=== PATIENT | female | born 1950 | race Caucasian/White ===

== ENCOUNTER 2018-01-05 23:09 | Emergency (ER) | payer BC, MEDICARE ==
[2018-01-05] MEDS ORDERED: Acetaminophen TAB* 325 MG PO ONE (23:52)
[2018-01-05] MEDS ORDERED: Lidocaine 2% 10 ML* VIAL INJ ONE (23:54)
[2018-01-05] MEDS ORDERED: Sulfamethox/Trimethoprim DS 800/160* TAB PO ONE (23:55)
[2018-01-05] MEDS ORDERED: Cephalexin CAP* 500 MG PO ONE (23:55)
[2018-01-06 00:12] LABS: Hematocrit 38 % (35-47); Hemoglobin 12.9 g/dl (12.0-16.0); Mean Corpuscular HGB Conc 34 g/dl (31-36); Mean Corpuscular Hemoglobin 31 pg (27-31); Mean Corpuscular Volume 90 fL (80-97); Red Blood Count 4.23 10^6/ul (4.0-5.4); Red Cell Distribution Width 13 % (10.5-15); White Blood Count 6.9 10^3/ul (3.5-10.8)
[2018-01-06 00:13] LABS: ABS Basophils 0.1 10^3/ul (0-0.2); ABS Eosinophils 0 10^3/ul (0-0.6); ABS Lymphocytes 0.6 10^3/ul (1.0-4.8); ABS Monocytes 0.4 10^3/ul (0-0.8); ABS Neutrophils 5.9 10^3/ul (1.5-7.7); ABS Nucleated RBC 0 10^3/ul; Eosinophil % 0.1 % (0-6); Lymphocyte % 8.8 % (25-47); Mean Platelet Volume 10.5 um3 (7.4-10.4); Nucleated Red Blood Cells % 0; Platelet Count 144 10^3/ul (150-450)
[2018-01-06] MEDS ORDERED: Lidocaine 2% PF * 5 ML VIAL ONE (00:20)
[2018-01-06 00:29] LABS: EGFR Non-African American 60.3 (>60)
[2018-01-06 00:57] VITALS: BP 137/77
--- NOTE | 2018-01-16 01:16 | ED ---
Red Mckenna Elizabeth, scribed for Antony Schafer MD on 01/05/18 at 2358 . HPI Febrile Illness - HPI Summary HPI Summary: This patient is a 67 year old F presenting to [facility] upon referral from Dr. Landry with a chief complaint of fever since 2 days ago. The patient rates the pain 5/10 in severity. Symptoms aggravated by nothing. Symptoms alleviated by nothing. Patient reports body aches in her back and chest. The patient also notes a growing abscess to her left wrist with some drainage. The patient reports that she was bitten by a dog on her leg a few weeks ago. The patient has been taking doxycycline for concerns of lyme disease Patient denies N/V/D, abd pain, sore throat, and rhinorrhea. - History of Current Complaint Chief Complaint: EDGeneral Time Seen by Provider: 01/05/18 23:46 Hx Obtained From: Patient Onset/Duration: Started Days Ago - 2 days ago, Still Present Timing: Constant Initial Severity: Mild Current Severity: Mild Pain Intensity: 5 Pain Scale Used: 0-10 Numeric Aggravating Factors: Nothing Alleviating Factors: Nothing Associated Signs and Symptoms: Swelling - abscess on left wrist, Other: - body aches - Allergy/Home Medications Allergies/Adverse Reactions: Allergies Allergy/AdvReac Type Severity Reaction Status Date / Time Penicillins Allergy Unknown Verified 01/05/18 23:16 Reaction Details PMH/Surg Hx/FS Hx/Imm Hx Respiratory History: Denies: Hx Chronic Obstructive Pulmonary Disease (COPD) Musculoskeletal History: Denies: Hx Rheumatoid Arthritis, Hx Osteoporosis - Cancer History Hx Chemotherapy: No Hx Radiation Therapy: No Infectious Disease History: No Infectious Disease History: Denies: Traveled Outside the [place] in Last 30 Days - Family History Known Family History: Positive: None, Other - patient denies any relevant FHx Review of Systems Positive: Fever Negative: Epistaxis Positive: Arthralgia, Myalgia, Edema - on left wrist, Other - body aches Positive: Other - abscess on left wrist All Other Systems Reviewed And Are Negative: Yes Physical Exam - Summary Physical Exam Summary: Appearance: Well-appearing, Well-nourished, lying in bed comfortably Skin: Warm, dry, abscess in volar left distal forearm with some cellulitis and lymphangitic streaking up to the elbow Eyes: sclera anicteric, no conjunctival pallor ENT: mucous membranes moist, pharynx appears normal Neck: Supple, nontender Respiratory: Clear to auscultation, no signs of respiratory distress Cardiovascular: Normal S1, S2. No murmurs. Normal distal pulses in tibial and radial bilaterally. Abdomen: Soft, nontender, normal active bowel sounds present Musculoskeletal: Normal, Strength/ROM Intact Neurological: A&Ox3, awake and alert, mentation is normal, speech is fluent and appropriate Psychiatric: affect is normal, does not appear anxious or depressed Triage Information Reviewed: Yes Vital Signs On Initial Exam: Initial Vitals Temp Pulse Resp BP Pulse Ox 99.1 F 80 15 161/84 96 01/05/18 23:10 01/05/18 23:10 01/05/18 23:10 01/05/18 23:10 01/05/18 23:10 Vital Signs Reviewed: Yes Procedures - Incision and Drainage Left Arm Site: left volar forearm Anesthesia: Local Instrument(s): Scalpel Diagnostics - Vital Signs Vital Signs Temp Pulse Resp BP Pulse Ox 01/05/18 23:10 99.1 F 80 15 161/84 96 - Laboratory Lab Results: Lab Results 01/06/18 01/06/18 Range/Units 00:07 00:07 WBC 6.9 (3.5-10.8) 10^3/ul RBC 4.23 (4.0-5.4) 10^6/ul Hgb 12.9 (12.0-16.0) g/dl Hct 38 (35-47) % MCV 90 (80-97) fL MCH 31 (27-31) pg MCHC 34 (31-36) g/dl RDW 13 (10.5-15) % Plt Count 144 L (150-450) 10^3/ul MPV 10.5 H (7.4-10.4) um3 Neut % (Auto) 84.8 H (38-83) % Lymph % (Auto) 8.8 L (25-47) % Wythe % (Auto) 5.4 (0-7) % Eos % (Auto) 0.1 (0-6) % Baso % (Auto) 0.9 (0-2) % Absolute Neuts (auto) 5.9 (1.5-7.7) 10^3/ul Absolute Lymphs (auto) 0.6 L (1.0-4.8) 10^3/ul Absolute Monos (auto) 0.4 (0-0.8) 10^3/ul Absolute Eos (auto) 0 (0-0.6) 10^3/ul Absolute Basos (auto) 0.1 (0-0.2) 10^3/ul Absolute Nucleated RBC 0 10^3/ul Nucleated RBC % 0 Sodium 137 L (139-145) mmol/L Potassium 3.8 (3.5-5.0) mmol/L Chloride 104 (101-111) mmol/L Carbon Dioxide 27 (22-32) mmol/L Anion Gap 6 (2-11) mmol/L BUN 18 (6-24) mg/dL Creatinine 0.93 (0.51-0.95) mg/dL Est GFR ( Amer) 77.6 (>60) Est GFR (Non-Af Amer) 60.3 (>60) BUN/Creatinine Ratio 19.4 (8-20) Glucose 117 H (70-100) mg/dL Calcium 9.3 (8.6-10.3) mg/dL Total Bilirubin 0.40 (0.2-1.0) mg/dL AST 51 H (13-39) U/L ALT 45 (7-52) U/L Alkaline Phosphatase 112 H (34-104) U/L Total Protein 6.7 (6.4-8.9) g/dL Albumin 4.0 (3.2-5.2) g/dL Globulin 2.7 (2-4) g/dL Albumin/Globulin Ratio 1.5 (1-3) Result Diagrams: 01/06/18 00:07 01/06/18 00:07 Lab Statement: Any lab studies that have been ordered have been reviewed, and results considered in the medical decision making process. Course/Dx - Course Assessment/Plan: This is a 67-year-old woman with a 2 day history of worsening left volar forearm cellulitis with apparent abscess. She does have some systemic symptoms and fever, as well as some lymphangitic streaking from the infection in the forearm. Her white blood cell count is normal. The patient squeezed this at home and did drain some purulent material, but I made a small incision over this to ensure that adequate drainage. I did not get any further purulence out, but left the wound open and dressed it. I explained that once we get adequate antibiotics on board she should not get much worse over the next 24 hours or so, and in the ensuing 24 hours she should start to see some improvement. She understands she would need to return if she does not follow that course. - Diagnoses Provider Diagnoses: Abscess Discharge - Sign-Out/Discharge Documenting (check all that apply): Discharge/Admit/Transfer - Discharge Plan Condition: Good Disposition: HOME Prescriptions: Cephalexin CAP* [Keflex CAP*] 500 mg PO QID #40 cap Cephalexin CAP* [Keflex CAP*] 500 mg PO QID #40 cap Sulfamethox/Trimethoprim DS* [Bactrim DS 800/160 TAB*] 1 tab PO BID #18 tab Sulfamethox/Trimethoprim DS* [Bactrim DS 800/160 TAB*] 1 tab PO BID #18 tab MDD 2 Patient Education Materials: Cellulitis (ED) Referrals: Lorena Tran MD [Primary Care Provider] - Additional Instructions: As we discussed, I would not expect you to get any worse over the next 24 hours now that you have adequate antibiotics on board. During the following 24 hours I would expect some improvement, though complete resolution of his symptoms may take up to a week. The small wound in the center of the infection may take a few more weeks to heal. If you're getting worse, or there really is no improvement after 48 hours of antibiotics, we should see you back here because he would probably need to be admitted for IV antibiotic therapy. - Billing Disposition and Condition Condition: GOOD Disposition: Home The documentation as recorded by the Red vazquez Elizabeth accurately reflects the service I personally performed and the decisions made by me, Antony Schafer MD.
== END 2018-01-06 00:55 | disposition home or self-care (01) ==
LOC: ED 23:09
DX: L02.414 Cutaneous abscess of left upper limb (principal); R50.9 Fever, unspecified; R60.0 Localized edema
CPT/HCPCS: 36415; 80053; 85025; 86140; 87070; 87205; 99282; A9270-GY